=== PATIENT | female | born 1935 | race African-American/Black ===

== ENCOUNTER 2024-07-22 05:00 | Emergency (ER) | payer OTHER ==
[~2024-07-22] VITALS: Ht 170.2 cm; Wt 80.0 kg
[2024-07-22 05:03] VITALS: O2SAT 97
[2024-07-22 07:28] LABS: HEMATOCRIT. 33.9 % (36.0-48.0); HEMOGLOBIN. 10.8 g/dL (12.0-16.0); MEAN CORPUSCULAR HEMOGLOBIN 30.8 pg (28.0-32.0); MEAN CORPUSCULAR HGB CONC 31.8 g/dL (31.0-37.0); MEAN CORPUSCULAR VOLUME 97.1 fL (81.0-99.0); MEAN PLATELET VOLUME 7.6 fl (7.4-10.4); PLATELET 267 x1000/uL (130-400); RED BLOOD CELL COUNT 3.49 mill/uL (4.2-5.4); RED CELL DISTRIBUTION WIDTH 19.2 % (11.6-14.6); WHITE BLOOD COUNT 12.4 x1000/uL (4.5-11.0)
[2024-07-22 07:34] LABS: DIFFERENTIAL COMMENT 1
[2024-07-22 08:01] LABS: POTASSIUM 4.1 mEq/L (3.5-5.1)
[2024-07-22 09:06] LABS: CREATININE 5.9 mg/dL (0.6-1.0)
[2024-07-22 11:35] LABS: PLATELET ESTIMATE NORMAL
[2024-07-22 11:36] LABS: ANISOCYTOSIS 2+
[2024-07-22 12:27] VITALS: BP 166/66; PULSE 66; RESP 15; TEMP 36.83628; O2SAT 94
== END 2024-07-22 12:44 | disposition short-term general hospital (02) ==
LOC: ER 05:00
DX: R53.1 Weakness (principal); I12.0 Hypertensive chronic kidney disease with stage 5 chronic kidney disease or end stage renal disease; N18.6 End stage renal disease; Z88.0 Allergy status to penicillin; Z88.1 Allergy status to other antibiotic agents; Z88.6 Allergy status to analgesic agent
CPT/HCPCS: 36415; 71045; 80048; 83880; 85025; 93005; 99285